=== PATIENT | female | born 1955 | race Caucasian/White ===

== ENCOUNTER 2016-10-20 16:26 | Inpatient (IN) | payer OTHER ==
--- NOTE | 2016-10-20 16:30 | EDPHY ---
H & P Time Seen by Provider: 10/20/16 16:30 Constitutional: Initial Vital Signs Temperature (C) 36.2 C 10/20/16 16:52 Heart Rate 85 10/20/16 16:52 Respiratory Rate 20 10/20/16 16:52 Blood Pressure 114/80 10/20/16 16:52 O2 Sat (%) 93 10/20/16 16:52 O2 Delivery Mode Room Air Allergies/Adverse Reactions: Unable to Assess Allergy (Unverified 10/20/16 16:51) Home Medications: Medication Instructions Recorded Risperdal 10/20/16 Medical Decision Making - Diagnostics Imaging: Discussed imaging studies w/ call or contact centre operator Radiologist - Diagnostics Imaging Results: Imaging Impressions Head CT 10/20/16 16:42 Impression: Head CT within normal limits. Results called to Dr. Juan Valle at 5:13 PM General information for patients regarding this examination can be found at [email or web address]. If you have questions or comments about this report, please contact me at (hospital) or [phone] (cell). ED Course/Re-evaluation: CHIEF COMPLAINT: Altered mental status HISTORY OF PRESENT ILLNESS: This patient is a 61 year old female arriving via EMS for evaluation of altered mental status onset earlier today. She is not responding to questions or commands. Per EMS, she does have purposeful movements. Vitals stable and within normal limits in transport. Further HPI limited due to patient presentation. REVIEW OF SYSTEMS: Unable to obtain due to patient presentation. PHYSICAL EXAM: HR, BP, O2 Sat, RR. Temp noted General Appearance: Not responding to questions or commands. Well hydrated and non-toxic appearing. Head: Atraumatic without obvious injury Eyes: Avoiding gaze. Pupils equal, round, reactive to light and accommodation, EOMI, no trauma, no injection. Ears: Clear bilaterally, no perforation, normal landmarks Nose: Atraumatic, no rhinorrhea, clear. Throat: There is no erythema or exudates, no lesions, normal tonsils, mucus membranes moist. Neck: Supple. Respiratory: No retractions, no distress, no wheezes, and no accessory muscle use. Lungs are clear to auscultation bilaterally. Cardiovascular: Regular rate and rhythm, no murmurs, rubs, or gallops. Good capillary refill all extremities. Gastrointestinal: Abdomen is soft, non-distended, no masses, no rebound, no guarding, no peritoneal signs. Musculoskeletal: Normal active ROM of all extremities, atraumatic. Neurological: Not responding to questions or commands. Purposeful movements. Eye movements. Skin: No rashes, good turgor, no nodules on palpation. Past medical history: Degenerative disc disease, anxiety. Past surgical history: Noncontributory Family history: Noncontributory. Social history: Lives in [place] DIFFERENTIAL DIAGNOSIS: The differential diagnosis for the patient's altered mental status included but was not limited to hypoglycemia, infectious process, electrolyte abnormality, head injury, neurologic process, anemia, cardiac process, psychiatric causes, and intoxicants. MEDICAL DECISION MAKIN61 year old female presents for evaluation of altered mental status. She is making purposeful movements and moves her gaze away when her eyes are opened, but will not respond to questions or commands. Her vitals are within normal limits. No signs of trauma. She has recently been seen at [facility] for symptoms related to discontinuing her psychiatric medications. Plan for labs, head CT to rule out acute intracranial processes. 17:10 Patient has gotten up and walked to the bathroom. Per her nurse, she " woke up" due to the CT scan. Labs unremarkable. 17:[address] Craft, radiologist. Head CT unremarkable. Plan to discharge home in good condition. She will follow up with her mental health providers for continued evaluation and management. 17:25 Patient is continuing to act strangely. Plan for psych evaluation. The 12 lead EKG was interpreted by myself. See hard copy and/or "[employer]" electronic copy for interpretation. Sinus rhythm, rate 85. (Juan Valle) I took over care of this patient at 11:00 p.m.. This patient is currently on an M1 hold and is to be placed. She is here for altered mental status and intermittent coma like state. She has been medically cleared. 12 midnight, patient has been standing in the doorway of her room. Sane she can 't sleep. No significant agitation. No psychotic behavior. She was given 1 mg of IV Ativan to help her sleep. 1:55 a.m., patient accepted for transfer to [address] [place] [address] for further psychiatric management. I have filled out the appropriate transfer paperwork. Her remaining emergency department course under my care has been uneventful. She was transferred in stable condition. (Dayna Ledbetter) - Data Points Laboratory Results: Laboratory Results 10/20/16 16:40 10/20/16 16:40 10/20/16 10/20/16 10/20/16 18:10 16:40 16:40 WBC 8.26 10^3/uL 10^3/uL (3.80-9.50) RBC 4.41 10^6/uL 10^6/uL (4.18-5.33) Hgb 14.1 g/dL g/dL (12.6-16.3) POC Hgb Hct 40.6 % % (38.0-47.0) POC Hct MCV 92.1 fL fL (81.5-99.8) MCH 32.0 pg pg (27.9-34.1) MCHC 34.7 g/dL g/dL (32.4-36.7) RDW 12.1 % % (11.5-15.2) Plt Count 150 10^3/uL 10^3/uL (150-400) MPV 11.3 fL fL (8.7-11.7) Neut % (Auto) 56.6 % % (39.3-74.2) Lymph % (Auto) 32.1 % % (15.0-45.0) [place] % (Auto) 9.9 % % (4.5-13.0) Eos % (Auto) 0.5 % L % (0.6-7.6) Baso % (Auto) 0.5 % % (0.3-1.7) Nucleat RBC Rel Count 0.0 % % (0.0-0.2) Absolute Neuts (auto) 4.68 10^3/uL 10^3/uL (1.70-6.50) Absolute Lymphs (auto) 2.65 10^3/uL 10^3/uL (1.00-3.00) Absolute Monos (auto) 0.82 10^3/uL H 10^3/uL (0.30-0.80) Absolute Eos (auto) 0.04 10^3/uL 10^3/uL (0.03-0.40) Absolute Basos (auto) 0.04 10^3/uL 10^3/uL (0.02-0.10) Absolute Nucleated RBC 0.00 10^3/uL 10^3/uL (0-0.01) Immature Gran % 0.4 % % (0.0-1.1) Immature Gran # 0.03 10^3/uL 10^3/uL (0.00-0.10) POC Sodium Sodium 137 mEq/L mEq/L (134-144) POC Potassium Potassium 3.9 mEq/L mEq/L (3.5-5.2) POC Chloride Chloride 104 mEq/L mEq/L (97-110) Carbon Dioxide 20 mEq/l L mEq/l (22-31) Anion Gap 13 mEq/L mEq/L (8-16) POC BUN BUN 8 mg/dL mg/dL (7-23) Creatinine 0.7 mg/dL mg/dL (0.6-1.0) POC Creatinine Estimated GFR > 60 Glucose 75 mg/dL mg/dL (70-100) POC Glucose Calcium 9.5 mg/dL mg/dL (8.5-10.4) Salicylates < 1.0 mg/dL L mg/dL (2.0-20.0) Urine Opiates Screen NEGATIVE (NEGATIVE) Acetaminophen < 10 mcg/mL L mcg/mL (10-30) Urine Barbiturates NEGATIVE (NEGATIVE) Ur Phencyclidine Scrn NEGATIVE (NEGATIVE) Ur Amphetamine Screen NEGATIVE (NEGATIVE) U Benzodiazepines Scrn NEGATIVE (NEGATIVE) Urine Cocaine Screen NEGATIVE (NEGATIVE) U Marijuana (THC) Screen NEGATIVE (NEGATIVE) Ethyl Alcohol < 10 mg/dL mg/dL (0-10) 10/20/16 16:29 WBC RBC Hgb POC Hgb 14.3 gm/dL gm/dL (12.6-16.3) Hct POC Hct 42 % % (38-47) MCV MCH MCHC RDW Plt Count MPV Neut % (Auto) Lymph % (Auto) Alger % (Auto) Eos % (Auto) Baso % (Auto) Nucleat RBC Rel Count Absolute Neuts (auto) Absolute Lymphs (auto) Absolute Monos (auto) Absolute Eos (auto) Absolute Basos (auto) Absolute Nucleated RBC Immature Gran % Immature Gran # POC Sodium 140 mEq/L mEq/L (134-144) Sodium POC Potassium 3.6 mEq/L mEq/L (3.3-5.0) Potassium POC Chloride 103 mEq/L mEq/L (97-110) Chloride Carbon Dioxide Anion Gap POC BUN 6 mg/dL L mg/dL (7-23) BUN Creatinine POC Creatinine 0.7 mg/dL mg/dL (0.6-1.0) Estimated GFR Glucose POC Glucose 80 mg/dL mg/dL (70-100) Calcium Salicylates Urine Opiates Screen Acetaminophen Urine Barbiturates Ur Phencyclidine Scrn Ur Amphetamine Screen U Benzodiazepines Scrn Urine Cocaine Screen U Marijuana (THC) Screen Ethyl Alcohol Medications Given: Discontinued Medications Lorazepam (Ativan Injection) 1 mg IVP EDNOW ONE Stop: 10/21/16 00:00 Last Admin: 10/21/16 00:15 Dose: 1 mg Point of Care Test Results: 10/20/16 16:29 POC Sodium 140 POC Potassium 3.6 POC Chloride 103 POC BUN 6 L POC Creatinine 0.7 POC Glucose 80 Departure - Departure Disposition: [facility] IP Clinical Impression: Somatization disorder Additional Instructions: 1. Follow up with your primary care provider and your mental health providers for continued evaluation of your symptoms. 2. Return to the emergency department for concerning worsening of condition. Referrals: Patient,NotPresent [Unknown] - As per Instructions
--- NOTE | 2016-10-20 16:44 | CPEKG ---
Heart Rate: 85 RR Interval: 706 P-R Interval: 140 QRSD Interval: 78 QT Interval: 384 QTC Interval: 457 P [place]: 63 QRS [place]: -41 T Wave [place]: 17 EKG Severity - OTHERWISE NORMAL ECG - EKG Impression: SINUS RHYTHM EKG Impression: LEFT AXIS DEVIATION Electronically Signed By: Juan Valle 20-Oct-2016 22:41:12
[2016-10-20 16:50] LABS: % IMMATURE GRANULYOCYTES 0.4 % (0.0-1.1); ABSOLUTE IMMATURE GRANULOCYTES 0.03 10^3/uL (0.00-0.10); ADD DIFF? NO; ADD MORPH? NO; ADD SCAN? NO; ATYPICAL LYMPHOCYTE FLAG 0 (0-99); FRAGMENT RBC FLAG 0 (0-99); HEMATOCRIT 40.6 % (38.0-47.0); HEMOGLOBIN 14.1 g/dL (12.6-16.3); LEFT SHIFT FLG 0 (0-99); LIPEMIA HEMOLYSIS FLAG 90 (0-99); MEAN CELL HEMOGLOBIN CONCENTR. 34.7 g/dL (32.4-36.7); MEAN CELL VOLUME 92.1 fL (81.5-99.8); MEAN PLATELET VOLUME 11.3 fL (8.7-11.7); PLATELET CLUMPS FLAG 10 (0-99); PLATELET COUNT 150 10^3/uL (150-400); RED BLOOD CELL COUNT 4.41 10^6/uL (4.18-5.33); RED CELL DISTRIBUTION WIDTH 12.1 % (11.5-15.2)
[2016-10-20 17:06] LABS: ANION GAP 13 mEq/L (8-16); CALCIUM 9.5 mg/dL (8.5-10.4); CARBON DIOXIDE 20 mEq/l (22-31); CHLORIDE 104 mEq/L (97-110); CREATININE 0.7 mg/dL (0.6-1.0); ETHANOL SERUM < 10 mg/dL (0-10); GLOMERULAR FILTRATION RATE > 60; GLUCOSE 75 mg/dL (70-100); POTASSIUM 3.9 mEq/L (3.5-5.2); SALICYLATE < 1.0 mg/dL (2.0-20.0); SODIUM 137 mEq/L (134-144)
[2016-10-21] MEDS: LORazepam 2 MG/ML INJ IVP ONE ×2 (00:15→05:12)
[2016-10-21 03:06] VITALS: O2SAT 96
[2016-10-21] MEDS ORDERED: MAGNESIUM HYDROXIDE 30 ML UDCUP PO PRN (03:28)
[2016-10-21] MEDS ORDERED: MAG HYDROX/AL HYDROX/SIMETH 30 ML UDCUP PO PRN (03:28)
[2016-10-21] MEDS ORDERED: ACETAMINOPHEN 325 MG TAB PO PRN (03:28)
[2016-10-21] MEDS ORDERED: LORazepam 0.5 MG TAB PO PRN (03:28)
[2016-10-21] MEDS ORDERED: OLANZapine 10 MG TAB PO PRN (03:29)
--- NOTE | 2016-10-21 16:01 | SOAPPROG ---
SOAP Progress Note Assessment/Plan: Assessment: Plan: Subjective: Inadvertent entry. Disregard. Objective: Vital Signs Temp Pulse Resp BP Pulse Ox 36.7 C 70 18 97/51 L 96 10/21/16 02:32 10/21/16 04:04 10/21/16 03:05 10/21/16 04:04 10/21/16 03:05 ICD10 Worksheet Patient Problems: Problems Problem Status Onset Somatization disorder Acute
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
--- NOTE | 2016-10-22 04:05 | BCON ---
[f rep st] BEHAVIORAL HEALTH CONSULTATION INTERNAL MEDICINE CONSULTATION DATE OF CONSULTATION: 10/21/2016 REFERRING PHYSICIAN: Gregor Briggs MD REASON FOR REFERRAL: Medical clearance for inpatient behavioral health stay. HISTORY OF PRESENT ILLNESS: This patient came to the emergency department yesterday via EMS for evaluation of altered mental status. She was not responding to questions or commands. She was evaluated with laboratory studies and a head CT. During the head CT, apparently, she became more responsive. Head CT was normal. She was evaluated by the mental health team and admitted for further psychiatric care for a possible somatoform disorder. She is currently without any acute complaints. PAST MEDICAL HISTORY: She reports history of a left leg injury when she fell off a porch some years ago, and she says that her left hip spontaneously dislocates and then comes back into place. She had a recent psychiatric hospitalization approximately 4 weeks ago. She denies any other past medical or surgical history. MEDICATIONS: She was prescribed Risperdal. ALLERGIES: There are no known drug allergies. SOCIAL HISTORY: She reports that she lives alone. She is soon to move in with her son. Per chart review, her son is the only significant person in her life. She is a nonsmoker. She denies alcohol use. 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 FAMILY HISTORY: Noncontributory. REVIEW OF SYSTEMS: She denies fevers, chills, feeling excessively hot or cold, weight gain or weight loss, nausea, vomiting, constipation or diarrhea, urinary frequency or dysuria. Her left hip is now not giving her any discomfort presently, and she denied denies any other joint pain. She denies headaches, vision changes, difficulty swallowing, weakness, numbness, or tingling of the extremities, and other than that, a 10-point review of systems is negative. PHYSICAL EXAMINATION: VITAL SIGNS: Blood pressure is 97/51, heart rate is 70. Respiratory rate is 18, oxygen saturation is 96% on room air, her temperature is 36.7 degrees centigrade, her weight is 72.6 kg for a body mass index of 23.6. GENERAL: This is a well-nourished, well-developed woman, somewhat unkempt, wearing a heavy wool pea coat, sitting up on the edge of her bed, cooperative, and in no acute distress. HEENT: Extraocular movements are intact. Pupils are equal, round, and reactive to light. Mucous membranes are moist. Dentition is in good condition. She has an uncrowded airway, Mallampati class 1. NECK: Supple with no thyromegaly. HEART: There is regular rate and rhythm with no murmurs, rubs, or gallops. LUNGS: Clear to auscultation bilaterally. ABDOMEN: Soft, nontender, nondistended with normoactive bowel sounds. EXTREMITIES: There is no cyanosis, clubbing, or edema. NEUROLOGIC: She is alert and oriented to herself and her general situation. She is off by 2 days on the day of the month. She is able to maintain reorientation to the date of the month, but not to the name of the facility. She exhibits memory for recent events though there is no corroborating information. 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 There is no focal weakness. Sensation is intact to light touch. Deep tendon reflexes are 2+ bilaterally at the biceps , patellar, and Achilles tendons, and gait is within normal limits. She is able to spell "world" forwards and backwards. LABORATORY DATA: Laboratory studies drawn in the emergency department. CBC was within normal limits. Serum chemistry revealed normal renal function and electrolytes with the exception of a slightly low carbon dioxide at 20. Toxicology screen in the serum was negative for salicylates, acetaminophen, or ethyl alcohol, and the urine was negative for any substances of abuse. ASSESSMENT/RECOMMENDATIONS: 1. Mental health issues. Pending further evaluation and management per Psychiatry and the mental health team. 2. Memory loss. Could this conceivably be an episode of transient global amnesia from which she is recovering. I think corroborating information about recent events in her life, for instance her work schedule and where did she work , would be useful. If it is not correct that she had the day off and spent the day at home on Thursday, yesterday, this might support a transient amnesia from which she is recovering. I will leave it up to further evaluation by Psychiatry to determine whether this might be somatization or another psychiatric diagnosis. I see no medical contraindications to this patient's continued stay on the inpatient behavioral health unit or to any psychiatric medications or procedures. Thank you very much for including me in the care of this patient, and please do not hesitate to contact me or the hospitalist service should there be need for further medical evaluation. /[id number]/MODL MTDBety
[2016-10-22 12:50] VITALS: BP 103/68; PULSE 75; RESP 14; TEMP 97.5
[2016-10-22] MEDS: NICOTINE POLACRILEX 2 MG GUM B PRN ×3 (15:40→20:03)
[2016-10-23] MEDS: NICOTINE POLACRILEX 2 MG GUM B PRN ×2 (10:06→13:58)
--- NOTE | 2016-10-23 16:54 | SOAPPROG ---
SOAP Progress Note Assessment/Plan: Assessment: Plan: 10/23/16 16:55 Continues to act out. I see this as completely behavioral at this point. She is not delirious and shows no signs or symptoms of an unstable mood d/o or psychotic illness. Will continue to monitor through the duration of her M-1 hold. Likely d/c tomorrow. Subjective: LATE ENTRY FOR 10/22/16. Pt seen, discussed with staff. Reportedly conversant with staff earlier today, but unwilling to speak to me. Alert and clearly understands what I am saying to her, she just refuses to respond. I received a call in the late afternoon that she then wanted to talk to me and was angry that I had already left the hospital. Staff reports continued disruptive and erratic behaviors such as taking clothes out of male pt's rooms. She is also rude and antagonistic with staff, unwilling to follow unit rules and requiring frequent redirection. Placed back on LOS last evening due to these behaviors. Objective: Vital Signs Temp Pulse Resp BP Pulse Ox 36.4 C 75 14 103/68 96 10/22/16 12:49 10/22/16 12:49 10/22/16 12:49 10/22/16 12:49 10/22/16 12:49 MSE: Calmly lying in bed. Makes appropriate and sustained eye contact, though refuses to speak. - Time Spent With Patient Time Spent With Patient: 15" ICD10 Worksheet Patient Problems: Problems Problem Status Onset Somatization disorder Acute
--- NOTE | 2016-10-23 19:34 | BDS ---
[f rep st] BEHAVIORAL HEALTH DISCHARGE SUMMARY REASON FOR ADMISSION: Patient is a 61-year-old, female who presented to the emergency dep artment due to an acute mental status change. She was suddenly found by her son to be mute and unab le to communicate. She was otherwise alert and interactive and did not display any other signs of e ncephalopathy, delirium or acute injury. She received a full medical workup in the emergency depart ment and then was placed on an M1 hold and admitted for psychiatric evaluation. She has a recent hi story of a similar presentation to [facility] at which time she was transferred to [facility]. Her son reported that she was diagnosed with having a "nervous breakdown" and treat ed with Risperdal. She was discharged a month prior to this admission, and apparently did not take the Risperdal. These symptoms she presented with here were acutely emergent over the day prior to a dmission. A full description of the events preceding admission can be found in her admission histor y dated 10/21/2016. 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 R ecurrent illness. ADMITTING PHYSICAL EXAMINATION: Performed by Dr. Javier Christine revealed no acute physical finding s. ADMISSION LABORATORY: CBC was normal. Serum chemistries were normal. Urine drug screen was negati ve for all substances. HOSPITAL COURSE: [facility] hold. Kim fernández was alert and interactive on her first day of admission, stating to me that she could not remember anything at all about her life or where she was or any other the fact about her surroundings or her own personal story. She said this in a very fluent and spontaneous way, was clearly interactive, w as able to reference certain things but when asked specifically what the date is or if she had famil y or what state she was in, the answer to every question was "I don't know." This is a very curious presentation and made me question the possibility of factitious disorder. Later that day, the ishmael ent began does display some histrionic and disruptive behaviors. She entered a male patient's room, disrobed and then got dressed in his clothes; this included underwear, socks, pants, shirt, vest, c oat and ball cap. She then walked out on the unit and claimed to be a different person who was a ma miki. In doing this, she was conversant, alert, not internally focused and seemed to [facility]. She was redirected away from that, placed on a line of sight so she would not distu rb fellow patients further. The patient's hospital course was uneventful. She was refusing psychotropic medication and actually refused to talk to me. She had the initial evaluation where she only said "I don't know" and then on the 2nd day she refused completely to talk with me. I informed her that I would be back to talk with her, if necessary, and she waited until the late afternoon and then demanded to see me, became very irritable and angry with staff, stating that she had a right to see the doctor. When I saw her on the morning of the third day of hospitalization, she was conversant, appropriate and presented w ith no notable difficulties. She stated that she had been under lot of stress and could not remembe r very many aspects of her recent behaviors. She did not claim amnesia however for any of the event s per se. She stated that she had some work stress and believes she probably lost the temporary job she was doing for [employer]. She was able to name her employ and her type of work, as well as demonstrat e good orientation in all spheres. Her thought process was linear and her thoughts were fluent. It was apparent to me that this rapid recovery was her indication that, for whatever reason, these beh aviors were ending. I do believe that they were factitious. I do not believe that they represented any form of an organic illness or psychiatric illness other than some histrionic and possibly borde rline character traits. Why she is doing this is unclear as I cannot engage her in that conversatio n with her denying that any of this was volitional. She received no medications during her stay and cleared completely. I, therefore, believe she does not require medications though certainly could benefit from psychotherapy. She agrees to pursue psychotherapy as an outpatient. CONDITION AT DISCHARGE: Stable. She was demonstrating no evidence of psychosis, was voicing no tho ughts of suicide, homicide or violence. She was alert and oriented to person, place, time, and situ ation. Her sensorium was clear, and her cognition was normal. DISCHARGE DIAGNOSES: Factitious disorder, marginal supports, employment stress. DISPOSITION: Patient left the hospital with her son who was going to take her home. FOLLOWUP: With [facility] as scheduled by the nurse wound care for next week. LEGAL COURSE: Patient was discharged just prior to the expiration of her M1 hold. /[id number]/MODL
== END 2016-10-23 18:10 | disposition home or self-care (01) | DRG 880 ==
LOC: BBEH 10-21 02:45
PROVIDERS: ADMIT Psychiatry & Neurology Psychiatry; ATTEND Psychiatry & Neurology Psychiatry
DX: F68.11 Factitious disorder imposed on self, with predominantly psychological signs and symptoms (principal)
CPT/HCPCS: 80305; 82947-QW; G0480; J2060